=== PATIENT | female | born 1985 | race Caucasian/White ===

== ENCOUNTER 2020-12-24 13:04 | Outpatient (CLI) | payer OTHER | END 2020-12-24 13:05 | disposition home or self-care (01) | LOC: CSHULT 13:04 | PROVIDERS: ATTEND Urology | DX: R19.03 Right lower quadrant abdominal swelling, mass and lump (principal); N28.1 Cyst of kidney, acquired; N32.89 Other specified disorders of bladder; R39.198 Other difficulties with micturition | CPT/HCPCS: 76770 ==

== ENCOUNTER 2022-02-23 14:19 | Outpatient (CLI) | payer MEDICARE, MEDICAID | END 2022-02-23 14:20 | disposition home or self-care (01) | LOC: CSHRAD 14:19 | PROVIDERS: ATTEND Family Medicine | DX: M79.89 Other specified soft tissue disorders (principal); Z87.81 Personal history of (healed) traumatic fracture ==